=== PATIENT | female | born 1990 | race Caucasian/White ===

== ENCOUNTER 2019-09-26 12:02 | Outpatient (CLI) | payer OTHER ==
[2019-09-27 12:24] LABS: SARS-CoV-2 MS2 Positive; SARS-CoV-2 N Gene Negative; SARS-CoV-2 S Gene Negative; SARS-CoV-2 orf1ab Negative
== END 2019-09-26 12:03 | disposition home or self-care (01) ==
LOC: LABSCS 12:02
PROVIDERS: ATTEND Obstetrics & Gynecology
DX: Z01.812 Encounter for preprocedural laboratory examination (principal); Z11.59 Encounter for screening for other viral diseases
CPT/HCPCS: 87635; U0003

== ENCOUNTER 2019-09-29 06:00 | Inpatient (IN) | payer OTHER ==
[2019-09-29 18:25] VITALS: BMI 24.6
[2019-09-29 18:51] LABS: Hemoglobin 13.9 g/dL (12.0-16.0); Mean Corpuscular HGB CONC 34.7 g/dL (32.0-36.0); Mean Corpuscular Hemoglobin 32.3 pg (27.0-31.0); Mean Platelet Volume 9.8 fL (7.4-10.4); Platelet Count 213 thou/uL (130-400); White Blood Cell (WBC) Count 9.4 thou/uL (4.8-10.8)
[2019-09-29] MEDS ORDERED: Lactated Ringer's 1,000 ML IV SCH ×2 (18:57)
[2019-09-29] MEDS ORDERED: Ondansetron PF 4 MG/2 ML Vial IVP PRN (18:57)
[2019-09-29] MEDS ORDERED: Butorphanol Tartrate 1 MG/ML VIAL SLOW IVP PRN (18:57)
[2019-09-29] MEDS ORDERED: Acetaminophen 500 MG TAB PO PRN (18:57)
[2019-09-29] MEDS ORDERED: Promethazine HCl 25 MG/ML VIAL IM PRN (18:57)
[2019-09-29] MEDS ORDERED: hydrALAZINE 20 MG/ML VIAL SLOW IVP PRN (18:57)
[2019-09-29] MEDS ORDERED: Lidocaine 1% (PF) 30 ML VIAL SC PRN (19:00)
[2019-09-29] MEDS ORDERED: Methylergonovine 0.2 MG/ML VIAL IM PRN (19:00)
[2019-09-29] MEDS ORDERED: Diphenoxylate HCl/Atropine Tablet PO PRN (19:00)
[2019-09-29] MEDS ORDERED: Carboprost 250 MCG/ML AMP IM PRN (19:00)
[2019-09-29] MEDS ORDERED: Misoprostol 200 MCG TAB RC PRN (19:00)
[2019-09-29] MEDS ORDERED: NS / Oxytocin 40 units/1000ml 1,000 ML IV SCH (19:00)
[2019-09-29] MEDS ORDERED: NS w/ Oxytocin 10 units 500 ML IV SCH ×2 (19:00)
[2019-09-29] MEDS ORDERED: Ibuprofen 800 MG TAB PO PRN (19:00)
[2019-09-29 19:29] LABS: Syphilis Antibody Nonreactive (Nonreactive); Syphilis Antibody Index 0.03 S/CO (<1.00 Non-Reactive)
[2019-09-29 22:52] LABS: Hep B Surf Ag Non-Reactive S/CO (NonReactive)
[2019-09-30] MEDS ORDERED: Lidocaine 1% (PF) 30 ML VIAL ONE (00:28)
[2019-09-30] MEDS ORDERED: HYDROcodone/Acetaminophen 5/325 mg Tablet PO PRN ×4 (02:12→02:19)
[2019-09-30] MEDS ORDERED: Milk Of Magnesia 30 ML UDCUP PO PRN ×2 (02:12→02:19)
[2019-09-30] MEDS ORDERED: hydrALAZINE 20 MG/ML VIAL SLOW IVP PRN ×2 (02:12→02:19)
[2019-09-30] MEDS ORDERED: diphenhydrAMINE 25 MG CAP PO PRN ×2 (02:12→02:19)
[2019-09-30] MEDS ORDERED: Bisacodyl 10 MG SUPP PR PRN ×2 (02:12→02:19)
[2019-09-30] MEDS ORDERED: Preparation H Ointment 28 GM TUBE PR PRN (02:12)
[2019-09-30] MEDS ORDERED: Benzocaine-Menthol 82.5 ML CAN TOP PRN ×2 (02:12→02:19)
[2019-09-30] MEDS ORDERED: Zolpidem Tartrate 5 MG TAB PO PRN ×2 (02:12→02:19)
[2019-09-30] MEDS ORDERED: Lanolin Ointment 7 GM TUBE TOP PRN ×2 (02:12→02:19)
[2019-09-30] MEDS ORDERED: Misoprostol 200 MCG TAB VAG PRN ×2 (02:12→02:19)
[2019-09-30] MEDS ORDERED: Ondansetron PF 4 MG/2 ML Vial IVP PRN ×2 (02:12→02:19)
[2019-09-30] MEDS ORDERED: NS / Oxytocin 40 units/1000ml 1,000 ML IV SCH ×2 (02:15→02:30)
[2019-09-30] MEDS ORDERED: Ibuprofen 800 MG TAB PO SCH (06:00)
[2019-09-30] MEDS ORDERED: Ferrous Sulfate 325 MG TAB PO SCH (08:00)
[2019-09-30] MEDS ORDERED: Prenatal Vitamin 1 TAB PO SCH (09:00)
[2019-09-30] MEDS ORDERED: Adacel (T-DAP) 0.5 ML SYRINGE IM ONE (09:00)
[2019-09-30] MEDS ORDERED: Docusate Calcium (SURFAK) 240 MG CAP PO SCH (09:00)
[2019-09-30] MEDS: Docusate Calcium (SURFAK) 240 MG CAP PO SCH ×2 (09:23→21:14)
[2019-09-30] MEDS: Prenatal Vitamin 1 TAB PO SCH (09:23)
[2019-09-30] MEDS: Ferrous Sulfate 325 MG TAB PO SCH ×2 (09:23→18:41)
[2019-09-30] MEDS: Ibuprofen 800 MG TAB PO SCH ×4 (14:21→23:59)
[2019-10-01] MEDS: Ibuprofen 800 MG TAB PO SCH ×2 (06:15→15:52)
[2019-10-01] MEDS: Ferrous Sulfate 325 MG TAB PO SCH ×2 (07:47→16:37)
[2019-10-01] MEDS: Prenatal Vitamin 1 TAB PO SCH (09:15)
[2019-10-01] MEDS: Docusate Calcium (SURFAK) 240 MG CAP PO SCH (09:15)
[2019-10-01 09:36] VITALS: BP 117/61; TEMP 97.6
== END 2019-10-01 17:30 | disposition home or self-care (01) | DRG 806 ==
LOC: L&D-LIB 15:55 → UNDOADMIN 15:55 → 3SW 09-30 04:18
PROVIDERS: ADMIT Obstetrics & Gynecology; ATTEND Obstetrics & Gynecology
PROC: 10E0XZZ Delivery of Products of Conception, External Approach (ICD-10-PCS; principal; 2019-09-30)
PROC: 0HQ9XZZ Repair Perineum Skin, External Approach (ICD-10-PCS; 2019-09-30)
PROC: 0UQMXZZ Repair Vulva, External Approach (ICD-10-PCS; 2019-09-30)
DX: O48.0 Post-term pregnancy (principal); O98.52 Other viral diseases complicating childbirth; Z37.0 Single live birth; Z3A.40 40 weeks gestation of pregnancy; B00.9 Herpesviral infection, unspecified; O99.284 Endocrine, nutritional and metabolic diseases complicating childbirth; E03.9 Hypothyroidism, unspecified; Z79.899 Other long term (current) drug therapy; O71.82 Other specified trauma to perineum and vulva; O70.0 First degree perineal laceration during delivery
CPT/HCPCS: 86780; 86850; 86900; 86901; 87340; 87635; J2001; U0003